=== PATIENT | male | born 1975 | race Caucasian/White ===

== ENCOUNTER 2021-03-31 06:45 | Emergency (ER) | payer BC ==
[2021-03-31 07:07] VITALS: BP 110/75; BMI 28.7
[2021-03-31] MEDS ORDERED: ACETAMINOPHEN 325 MG TABLET (FP) PO ONE (07:35)
[2021-03-31] MEDS ORDERED: ACETAMINOPHEN 325 MG TABLET (FP) ONE (07:39)
[2021-03-31 07:47] VITALS: PULSE 89; TEMP 97.8
[2021-03-31] MEDS ORDERED: SODIUM CHLORIDE 1,000 ML IV STA (07:53)
[2021-03-31 08:25] LABS: BASO % 0.4 % (0-2.0); EOS % 1.9 % (0-4.5); HEMATOCRIT 44.7 % (35.4-49); HEMOGLOBIN 15.7 GM/dL (11.7-16.9); LYMPH % 13.7 % (8-40); MCHC 35.1 g/dl (32.0-35.9); MEAN PLT VOLUME 9.4 fl (7.5-11.1); MONO % 7.6 % (3.8-10.2); NEUT % 76.4 % (42.8-82.8); PLATELET COUNT 216 10^3/uL (134-434); RBC 4.91 M/mm3 (4.00-5.60); RDW 13.1 % (11.9-15.9); WHITE BLOOD COUNT 9.8 K/mm3 (4.0-10.0)
[2021-03-31 08:51] LABS: EPI CELLS 4 /uL (0-25.1); HYALINE CASTS 2 /uL (0-3.1); URINE APPEARANCE CLEAR; URINE BACTERIA 0 /uL (0-1359); URINE BILIRUBIN NEGATIVE (NEGATIVE); URINE COLOR YELLOW; URINE GLUCOSE (UA) NEGATIVE (NEGATIVE); URINE KETONE NEGATIVE (NEGATIVE); URINE LEUK ESTERASE NEGATIVE (NEGATIVE); URINE NITRITE NEGATIVE (NEGATIVE); URINE PROTEIN 1+ (NEGATIVE); URINE RBC 5 /uL (0-23.9); URINE UROBILINOGEN 0.2 mg/dL (0.2-1.0); URINE WBC 6 /uL (0-25.8)
[2021-03-31 08:52] LABS: CALCIUM 9.1 mg/dL (8.5-10.1)
[2021-03-31 08:53] LABS: ALBUMIN 3.6 g/dl (3.4-5.0)
[2021-03-31 08:56] LABS: CREATININE 0.9 mg/dL (0.55-1.3)
[2021-03-31 08:58] LABS: BILIRUBIN,TOTAL 0.7 mg/dL (0.2-1); TOT PROT 7.4 g/dl (6.4-8.2)
[2021-03-31] MEDS ORDERED: levETIRAcetam 500 MG TABLET (FP) PO ONE ×2 (10:09→10:25)
== END 2021-03-31 10:33 | disposition home or self-care (01) ==
LOC: JER 06:45
DX: R56.9 Unspecified convulsions (principal)
CPT/HCPCS: 36415; 71045-TC-FY; 80053; 80185; 81003; 82962; 85025; 87086; 99284-25